=== PATIENT | female | born 1970 ===

== ENCOUNTER 2024-02-17 03:42 | Day surgery (SDC) | payer BC ==
[2024-02-12 10:23] VITALS: BMI 24.5
[2024-02-17] MEDS ORDERED: LIDOCAINE HCL/PF 2% SDV 5ML VIAL ONE (07:17)
[2024-02-17] MEDS ORDERED: ceFAZolin SODIUM 1 GM VIAL ONE (07:17)
[2024-02-17] MEDS ORDERED: KETOROLAC TROMETHAMINE 30 MG/1 ML VIAL ONE (07:17)
[2024-02-17] MEDS ORDERED: SODIUM CHLORIDE 0.9% P/F 10 ML VIAL IJ ONE (07:17)
[2024-02-17] MEDS ORDERED: DEXAMETHASONE SOD PHOSPHATE 4 MG/1 ML VIAL ONE (07:17)
[2024-02-17] MEDS ORDERED: ONDANSETRON 4 MG/2 ML VIAL ONE (07:17)
[2024-02-17] MEDS ORDERED: MIDAZOLAM HCL 2 MG/2 ML SINGLE DOSE VIAL ONE (07:18)
[2024-02-17] MEDS ORDERED: FENTANYL CITRATE/PF 50 MCG/ML VIAL ONE (07:19)
[2024-02-17] MEDS ORDERED: PROPOFOL 40 ML ONE (07:19)
[2024-02-17] MEDS ORDERED: ACETAMINOPHEN INJECTION 100 ML IVPB ONE (07:43)
[2024-02-17] MEDS ORDERED: SUCCINYLCHOLINE CHLORIDE 200 MG/10 ML SYRINGE ONE (07:50)
[2024-02-17] MEDS ORDERED: oxyCODONE HCL 5 MG TABLET PO PRN (08:41)
[2024-02-17] MEDS ORDERED: IBUPROFEN 600 MG TABLET (FP) PO PRN (08:41)
[2024-02-17] MEDS ORDERED: ONDANSETRON 4 MG/2 ML VIAL IVPUSH PRN ×2 (08:41→08:49)
[2024-02-17] MEDS ORDERED: IBUPROFEN 800 MG/8 ML IJ IVPB PRN (08:41)
[2024-02-17] MEDS ORDERED: ELECTROLYTE-148 SOLN 1,000 ML IV SCH (08:45)
[2024-02-17] MEDS ORDERED: LACTATED RINGERS SOLUTION 1,000 ML IV SCH (09:00)
[2024-02-17 10:31] VITALS: RESP 20; TEMP 97.3
[2024-02-17 10:34] VITALS: BP 118/75; PULSE 71
== END 2024-02-17 10:20 | disposition home or self-care (01) ==
LOC: JASU-SURG 03:42
PROVIDERS: ATTEND Obstetrics & Gynecology
PROC: 0UDB8ZX Extraction of Endometrium, Via Natural or Artificial Opening Endoscopic, Diagnostic (ICD-10-PCS; principal; 2024-02-17 07:30)
DX: N85.00 Endometrial hyperplasia, unspecified (principal)
CPT/HCPCS: 81025; 86850; 86900; 86901; 88305-TC; 94760; J0131